=== PATIENT | female | born 1970 | race Caucasian/White ===

== ENCOUNTER → 2024-07-09 | Outpatient (CLI) | payer OTHER, SELFPAY ==
[2024-07-09 15:52] LABS: Collection Type, Urine Clean Catch
[2024-07-09 16:29] LABS: Bilirubin,Urine Negative (Negative); Blood,Urine 2+ (Negative); Budding Yeast,Urine Present; Clarity,Urine Hazy (Clear/Hazy); Color,Urine Drk-Yellow (Lt Yel-Yel); Glucose, Urine Negative (Negative); Ketones,Urine Negative (Negative); Leukocyte Esterase,Urine Positive (Negative); Nitrite,Urine Negative (Negative); Protein,Urine 1+ (Neg - Trace); RBC,Urine 100 /hpf (0-3); Specific Gravity,Urine 1.024 (1.001-1.035); Squamous Epithelial Cell,Urine 3 /hpf (0-5); Urobilinogen,Urine Negative mg/dL (0.0-1.0); WBC,Urine 61 /hpf (0-5)
== END | disposition home or self-care (01) ==
LOC: SLDO 15:43
PROVIDERS: PCP Family Medicine; Referring Provider Family Medicine; Visit Provider Family Medicine
DX: N30.00 Acute cystitis without hematuria (principal)
CPT/HCPCS: 81001; 87086

== ENCOUNTER → 2024-08-05 | Outpatient (CLI) | payer OTHER, SELFPAY ==
[2024-08-05 13:42] LABS: Vitamin D 25 Hydroxy Total 29.8 ng/mL (7.3-40.2)
[2024-08-05 13:43] LABS: Free T3 3.1 pg/mL (2.3-4.2); Free T4 (Free Thyroxine) 1.11 ng/dL (0.89-1.76)
[2024-08-18 06:52] LABS: DHEA Sulfate* 215 mcg/dL (8-188); Estradiol, Ultrasensitive* <2 pg/mL; Progesterone,LC/MS* <0.1 ng/mL; Testosterone, Free,Dialysis 1.3 pg/mL (0.1-6.4); Testosterone, Total, Dialysis 13 ng/dL (2-45)
== END | disposition home or self-care (01) ==
LOC: COPL 12:21
PROVIDERS: PCP Family Medicine; Referring Provider Nurse Practitioner Women's Health; Visit Provider Nurse Practitioner Women's Health
DX: N95.1 Menopausal and female climacteric states (principal); E34.9 Endocrine disorder, unspecified; E03.9 Hypothyroidism, unspecified; E55.9 Vitamin D deficiency, unspecified
CPT/HCPCS: 36415; 82306; 82627; 82670; 84144; 84402; 84403; 84439; 84443; 84481

== ENCOUNTER → 2024-11-20 | Outpatient (CLI) | payer OTHER, SELFPAY ==
[2024-11-20 14:09] LABS: Free T4 (Free Thyroxine) 1.04 ng/dL (0.89-1.76); Thyroid Stimulating Hormone 3.68 uIU/mL (0.55-4.78)
== END | disposition home or self-care (01) ==
LOC: COPL 12:21
PROVIDERS: PCP Family Medicine; Referring Provider Nurse Practitioner Women's Health; Visit Provider Nurse Practitioner Women's Health
DX: N95.1 Menopausal and female climacteric states (principal); E34.9 Endocrine disorder, unspecified; E03.9 Hypothyroidism, unspecified
CPT/HCPCS: 36415; 82627; 82670; 84144; 84402; 84403; 84439; 84443; 84481

== ENCOUNTER → 2024-12-04 | Outpatient (CLI) | payer OTHER, SELFPAY ==
[2024-12-04 12:36] LABS: Collection Type, Urine Clean Catch
[2024-12-04 13:20] LABS: Bacteria,Urine 2+; Bilirubin,Urine Negative (Negative); Blood,Urine Trace (Negative); Color,Urine Drk-Yellow (Lt Yel-Yel); Glucose, Urine Negative (Negative); Ketones,Urine Negative (Negative); Leukocyte Esterase,Urine Positive (Negative); Nitrite,Urine Negative (Negative); PH,Urine 5.5 (5.0-7.0); Protein,Urine 1+ (Neg - Trace); RBC,Urine 18 /hpf (0-3); Specific Gravity,Urine 1.036 (1.001-1.035); Squamous Epithelial Cell,Urine 7 /hpf (0-5); Urobilinogen,Urine Negative mg/dL (0.0-1.0); WBC,Urine 105 /hpf (0-5)
[2024-12-04 13:30] LABS: Clarity,Urine Hazy (Clear/Hazy)
== END | disposition home or self-care (01) ==
LOC: SLDO 12:17
PROVIDERS: Referring Provider Family Medicine; Visit Provider Family Medicine
DX: N30.00 Acute cystitis without hematuria (principal)
CPT/HCPCS: 81001; 87086